=== PATIENT | male | born 1965 | race Caucasian/White ===

== ENCOUNTER 2020-12-13 11:28 | Emergency (ER) | payer MEDICARE ==
[~2020-12-13 11:28] MED LIST: ACIDOPHILUS1 EAC2 PO; ASPIR 8181 MG PO; ASPIRIN EC81 MG PO; ATORVASTATIN CA80 MG PO; BRILINTA90 MG PO; CARBAMAZEPINE PO; CARBAMAZEPINE200 MG PO; CETIRIZINE HCL10 MG PO; COZAAR 25MG TAB25 MG PO; CYMBALTA30 MG PO; DULOXETINE HCL60 MG PO; FLAGYL500 MG PO; FLUTICASONE PRO16 GM; HYDROCHLOROTH12.5 MG PO; KEFZOL; LANTUS100 UNIT/1 SQ; LOPRESSOR50 MG PO; LOSARTAN POTAS100 MG PO; LOSARTAN POTASS25 MG PO; METOPROLOL TAR100 MG PO; NEURONTIN 400400 MG PO; NORCO 7.5-3251 EACH PO; NOVOLIN R100 UNIT/1 INJ; NOVOLOG 10100 UNITS/ SQ; NOVOLOG 10100 UNITS2 SQ; NOVOLOG SQ; PLAVIX 75 MG TA75 MG PO; PRAZOSIN HCL2 MG PO; PROTONIX40 MG PO; STOMACH MEDICINE; TEGRETOL 200 M200 MG PO; TEGRETOL200 MG PO; VIAGRA50 MG PO; ZYRTEC10 MG PO
[2020-12-13 12:31] LABS: HEMOGLOBIN 16.1 gm/dl (14.0-17.5); RED BLOOD COUNT 5.08 M/UL (4.20-5.50); WHITE BLOOD COUNT 12.3 K/UL (4.5-11.0)
[2020-12-13 12:46] LABS: BUN/CREATININE RATIO 15 (0-10)
== END 2020-12-13 12:34 | disposition short-term general hospital (02) ==
LOC: ER1 11:28
PROVIDERS: Emergency Medicine
DX: I63.9 Cerebral infarction, unspecified (principal); R29.706 NIHSS score 6; I10 Essential (primary) hypertension; E11.9 Type 2 diabetes mellitus without complications; E78.5 Hyperlipidemia, unspecified; F17.210 Nicotine dependence, cigarettes, uncomplicated
CPT/HCPCS: 70450; 71045; 80053; 82550; 82553; 83874; 84484; 85025; 85610; 85730; 87635; 93005; 99285